=== PATIENT | male | born 1990 | race Hispanic/Latino ===

== ENCOUNTER 2021-12-22 17:22 | Emergency (ER) | payer SELFPAY ==
[2021-12-22 17:33] VITALS: BP 138/71; PULSE 52; RESP 16; TEMP 36.6; O2SAT 100
--- NOTE | 2021-12-22 17:34 | ED.SKABFB ---
HPI - Skin/Abscess/Foreign Bdy General Chief complaint: Skin/Abscess/Foreign Body Stated complaint: Rash Time Seen by Provider: 12/22/21 17:34 Source: patient Mode of arrival: ambulatory Limitations: no limitations History of Present Illness HPI narrative: 31-year-old male presents with complaint of poison jodie rash to left arm and left chest. Rash started yesterday after doing yard work. Reports 2 years ago he had poison jodie and rash got really bad, waited a week before he was seen. All systems reviewed and negative except as noted above. Related Data Allergies Allergy/AdvReac Type Severity Reaction Status Date / Time No Known Allergies Allergy Verified 12/22/21 17:46 Review of Systems Review of Systems: CONSTITUTIONAL: Denies fever, chills, or sweats. EYES: Denies visual changes, redness, or discharge. ENT: Denies rhinorrhea, congestion, sore throat, or otalgia. CARDIOVASCULAR: Denies chest pain, palpitations, or edema. RESPIRATORY: Denies cough or dyspnea. GASTROINTESTINAL: Denies abdominal pain, nausea, vomiting, or diarrhea. GENITOURINARY: Denies dysuria or hematuria. SKIN: Reports itchy rash to left arm and left chest. MUSCULOSKELETAL: Denies back pain, joint pain, or myalgia. NEUROLOGIC: Denies headache, numbness, or weakness. PSYCHIATRIC: Denies anxiety or depression. All other systems reviewed are negative, except as documented in HPI. PMFSH Comments At time of signature, agree with nursing past medical, surgical, social and family history. There is no relevant family history pertinent to the presenting complaint. Exam Narrative: GENERAL: This is a well-nourished, well-developed patient, in no apparent distress. HEAD: normocephalic, atraumatic. EYES: PERRL. Sclera clear/white. Vision is grossly intact. EARS: External ears normal NOSE: External nose normal NECK: Neck supple, non-tender without lymphadenopathy, masses or thyromegaly. CARDIOVASCULAR: Regular rate and rhythm without murmurs, gallops, or rubs. RESPIRATORY: Clear to auscultation. Breath sounds equal bilaterally. No wheezes, rales, or rhonchi. SKIN: warm, Dry, intact with no suspicious lesions, good texture and turgor. Erythematous, vesicular rash to left upper arm and forearm, left side of chest. No signs of infection. No open wounds. NEURO: awake, alert, and oriented to person, place and time. There were no obvious focal neurologic abnormalities. EXTREMITIES: No joint tenderness, effusion, or edema noted. Course Course Level of Care: Express Care Visit Vital Signs Vital signs: Reviewed MDM - Skin/Abscess/Foreign Bdy MDM Narrative Medical decision making narrative: Patient is aware of diagnosis, understands and agrees to treatment plan. Anticipatory guidance given. Patient agrees to follow-up as directed and is aware of reasons to seek care at the emergency department. Portions of this record may have been created with voice recognition software Differential Diagnosis Differential diagnosis: Likely urticaria, eczema, insect bites and contact dermatitis Discharge Plan Discharge Clinical Impression: Dermatitis due to plants, including poison jodie, sumac, and oak Patient Disposition: Home, Self-Care Condition: Stable Instructions: Poison Jodie (ED) Additional Instructions: Take medications as prescribed. See your doctor if rash not improving. Avoid scratching to prevent infection. Prescriptions: New triamcinolone acetonide 0.1 % cream 1 applic topical BID Qty: 30 0RF hydroxyzine HCl 10 mg tablet 10 mg PO Q6-8H PRN (Reason: itching) Qty: 30 0RF prednisone 20 mg tablet See Rx Instructions .ROUTE .COMPLEX Qty: 12 0RF Rx Instructions: Take 3 tablets once then 2 tablets for 3 days then 1 tablet for 3 days. Follow-up/Referrals: PHYSICIAN,CLINICAL RESEARCH ASSISTANT [Primary Care Provider] - Time of Disposition: 17:48
[2021-12-22 17:35] VITALS: BP 138/71; PULSE 52; RESP 16; TEMP 36.6; O2SAT 100
== END 2021-12-22 17:49 | disposition home or self-care (01) ==
PROVIDERS: Emergency Provider Nurse Practitioner Family
DX: L25.5 Unspecified contact dermatitis due to plants, except food (principal)
CPT/HCPCS: 99203; G0463